=== PATIENT | male | born 1990 | race African-American/Black ===

== ENCOUNTER 2017-05-15 03:47 | Emergency (ER) | payer MEDICAID ==
[~2017-05-15] VITALS: Ht 188 cm; Wt 61.0 kg
[2017-05-15 07:44] LABS: CLARITY URINE CLEAR (CLEAR); COLOR URINE DARK YELLOW (YELLOW); GLUCOSE URINE NEGATIVE (NEGATIVE); KETONES URINE TRACE (NEGATIVE); LEUKOCYTE ESTERASE URINE 1+ (NEGATIVE); NITRITE URINE NEGATIVE (NEGATIVE); OCCULT BLOOD URINE 3+ (NEGATIVE); PH URINE 6.5 (4.5-8.0); PROTEIN URINE 2+ (NEGATIVE); SPECIFIC GRAVITY URINE 1.027 (1.005-1.030)
[2017-05-15 07:53] LABS: *AMPHETAMINES SCREEN URINE PRESUMTIVE POSITIVE (NEGATIVE); *BARBITURATES SCREEN URINE NEGATIVE (NEGATIVE); *BENZODIAZEPINES SCREEN URINE NEGATIVE (NEGATIVE); *COCAINE SCREEN URINE PRESUMTIVE POSITIVE (NEGATIVE); CANNABINOID URINE SCREEN PRESUMTIVE POSITIVE (NEGATIVE); METHADONE URINE SCREEN NEGATIVE (NEGATIVE); OPIATES URINE SCREEN NEGATIVE (NEGATIVE); PHENCYCLIDINE URINE SCREEN NEGATIVE (NEGATIVE)
[2017-05-15 08:59] VITALS: BP 115/80
== END 2017-05-15 09:02 | disposition home or self-care (01) ==
LOC: ER 03:56
DX: M79.642 Pain in left hand (principal); N39.0 Urinary tract infection, site not specified; F15.129 Other stimulant abuse with intoxication, unspecified; V89.2XXA Person injured in unspecified motor-vehicle accident, traffic, initial encounter; Y93.01 Activity, walking, marching and hiking; Y99.8 Other external cause status; Y92.89 Other specified places as the place of occurrence of the external cause
CPT/HCPCS: 36415; 70450; 71020; 72125; 73130; 80305; 81001; 99285; G0482

== ENCOUNTER 2017-12-22 06:34 | Emergency (ER) | payer MEDICAID ==
[~2017-12-22] VITALS: Ht 188 cm; Wt 59.8 kg
[2017-12-22] MEDS ORDERED: SODIUM CHLORIDE 0.9% 1,000 ML IV ONE (07:17)
[2017-12-22 10:10] LABS: *AMPHETAMINES SCREEN URINE NEGATIVE (NEGATIVE); *BARBITURATES SCREEN URINE NEGATIVE (NEGATIVE)
[2017-12-22 10:15] LABS: *BENZODIAZEPINES SCREEN URINE NEGATIVE (NEGATIVE); *COCAINE SCREEN URINE PRESUMTIVE POSITIVE (NEGATIVE); CANNABINOID URINE SCREEN PRESUMTIVE POSITIVE (NEGATIVE); METHADONE URINE SCREEN NEGATIVE (NEGATIVE); OPIATES URINE SCREEN PRESUMTIVE POSITIVE (NEGATIVE); PHENCYCLIDINE URINE SCREEN PRESUMTIVE POSITIVE (NEGATIVE)
[2017-12-22 11:04] VITALS: BP 143/90
== END 2017-12-22 11:20 | disposition home or self-care (01) ==
LOC: ER 07:29
DX: F14.188 Cocaine abuse with other cocaine-induced disorder (principal); R00.0 Tachycardia, unspecified; R03.0 Elevated blood-pressure reading, without diagnosis of hypertension; F19.10 Other psychoactive substance abuse, uncomplicated; R06.02 Shortness of breath
CPT/HCPCS: 71045; 80305; 93005; 96360; 99285; J7030; Z7610

== ENCOUNTER 2019-10-28 06:13 | Emergency (ER) | payer MEDICAID ==
[~2019-10-28] VITALS: Ht 188 cm; Wt 64.0 kg
[2019-10-28 06:16] VITALS: BP 146/89
== END 2019-10-28 06:58 | disposition left against medical advice (07) ==
LOC: ER 06:13
DX: R00.2 Palpitations (principal); Z53.21 Procedure and treatment not carried out due to patient leaving prior to being seen by health care provider